=== PATIENT | male | born 1990 | race Hispanic/Latino ===

== ENCOUNTER 2020-03-15 14:53 | Inpatient (IN) | payer OTHER ==
[~2020-03-15] VITALS: Ht 165.1 cm; Wt 104.1 kg
[2020-03-15] MEDS ORDERED: ONDANSETRON ODT 4 MG TAB ONE (15:17)
[2020-03-15] MEDS ORDERED: ACETAMINOPHEN EXTRA STRENGTH 500 MG TABLET ONE (15:42)
[2020-03-15 16:10] LABS: APPEARANCE,URINE Cloudy (CLEAR); BILIRUBIN,URINE Negative (NEGATIVE); COLOR,URINE Dark Yellow (YELLOW); GLUCOSE, URINE (UA) Negative (NEGATIVE); KETONES,URINE Negative (NEGATIVE); LEUKOCYTE ESTERASE ,URINE Negative (NEGATIVE); NITRATE,URINE Negative (NEGATIVE); OCCULT BLOOD,URINE Moderate (NEGATIVE); PROTEIN,URINE 300 mg/dL (NEGATIVE); UROBILINOGEN,URINE 0.2 mg/dL (0.2-1.0)
[2020-03-15 16:24] LABS: BACTERIA,URINE Few /HPF (None Seen); MUCUS,URINE Few LPF (None Seen); SQUAMOUS EPITHELIAL CELL,UR 0-2 /HPF (0-2)
[2020-03-15 17:01] LABS: BASOPHILS % (AUTO) 0.4 % (0.0-5.0); EOSINOPHILS % (AUTO) 0.4 % (0.0-8.0); HEMATOCRIT 42.4 % (42-54); MEAN CORPUSCULAR HEMOGLOBIN 29.2 pg (27.0-33.0); MEAN CORPUSCULAR HGB CONC 35.4 g/dL (32.0-36.0); MEAN CORPUSCULAR VOLUME 82.5 fL (79-99); MONOCYTES % (AUTO) 11.2 % (3.0-13.0); NEUTROPHILS % (AUTO) 77.6 % (40.0-77.0); PLATELET COUNT (AUTO) 181 K/uL (130-400); RED BLOOD CELL COUNT(AUTO) 5.14 MIL/uL (4.50-6.20); WHITE BLOOD COUNT (AUTO) 13.9 K/uL (4.8-10.8)
[2020-03-15 17:16] LABS: ALBUMIN 3.6 g/dL (3.5-5.0); BILIRUBIN,TOTAL 0.4 mg/dL (0.2-1.0); CREATININE 1.4 mg/dL (0.5-1.5); TOTAL PROTEIN, SERUM 8.1 g/dL (6.0-8.3)
[2020-03-15 17:26] LABS: POTASSIUM 2.9 mmol/L (3.5-5.1)
[2020-03-15] MEDS ORDERED: POTASSIUM BICARB/CIT AC 25 MEQ TABLET.EFF ONE ×2 (17:38→18:34)
[2020-03-15] MEDS ORDERED: LEVOFLOXACIN 750 MG/D5W 150 ML 150 ML ONE (18:41)
[2020-03-15] MEDS: SODIUM CHLORIDE 0.9% 1000ML 1,000 ML IV SCH (19:21)
[2020-03-15] MEDS ORDERED: LACTULOSE 20 GM/30 ML UDCUP PO PRN (19:30)
[2020-03-15] MEDS ORDERED: POTASSIUM CHLORIDE 10MEQ/100ML 100 ML IV PRN (19:30)
[2020-03-15] MEDS ORDERED: LIDOCAINE HCL-MPF 1% 2ML VIAL IV PRN (19:30)
[2020-03-15] MEDS: LEVOFLOXACIN 500 MG/D5W 100 ML 100 ML IV SCH (19:30)
[2020-03-15] MEDS: METRONIDAZOLE 500MG/100ML BAG 100 ML IV SCH (19:30)
[2020-03-15] MEDS ORDERED: POTASSIUM CHLORIDE 10% ELIXIR 20 MEQ/15 ML UDCUP PO PRN (19:30)
[2020-03-15 19:40] LABS: INR 0.94 (0.85-1.15); PARTIAL THROMBOPLASTIN TIME 28.7 SEC (26.3-35.5); PROTHROMBIN TIME 10.2 SEC (9.6-11.6)
[2020-03-15 19:42] LABS: TROPONIN I 0.55 ng/mL (0.00-0.06)
[2020-03-15] MEDS ORDERED: LACTATED RINGERS 1000ML 2,000 ML IV ONE (20:03)
[2020-03-15] MEDS: FAMOTIDINE 20MG TAB 20 MG TAB PO SCH (21:00)
[2020-03-15] MEDS ORDERED: FAMOTIDINE/PF 20 MG/2 ML VIAL IV ONE (22:47)
[2020-03-15] MEDS ORDERED: METRONIDAZOLE 500MG/100ML BAG 100 ML ONE (22:47)
[2020-03-15] MEDS ORDERED: ACETAMINOPHEN 325 MG TAB ONE (23:15)
[2020-03-16 03:05] VITALS: BP 127/77
--- NOTE | 2020-03-16 03:05 | NUR ---
ARRIVED TO ROOM 201 VIA STRETCHER. PT AAOx3, DENIES ANY PAIN. PT STATES HE LIVED IN [place] BUT MOVED BACK TO [place] ABOUT 5 WEEKS AGO. HE LIVES WITH HIS BROTHER AND GRANDFATHER. HIS FAMILY INCLUDING AUNTS AND UNCLES HAVE BEEN VISITING AT HIS HOUSE (GRANDFATHERS HOUSE) AND HAVE NOT OBEYED THE QUARANTINE RULES. HE HAS BEEN EXPERIENCING FEVER, DIARRHEA, ABDOMINAL PAIN, AND HEADACHE FOR THE PAST 4-5 DAYS. UP AD RL. BED TO LOWEST LEVEL. CALL LIGHT WITHIN REACH.
[2020-03-16] MEDS: SODIUM CHLORIDE 0.9% 1000ML 1,000 ML IV SCH ×2 (03:29→07:38)
[2020-03-16] MEDS: METRONIDAZOLE 500MG/100ML BAG 100 ML IV SCH ×3 (03:30→20:56)
[2020-03-16 06:26] LABS: BASOPHILS % (AUTO) 0.3 % (0.0-5.0); EOSINOPHILS % (AUTO) 0.2 % (0.0-8.0); HEMATOCRIT 42.6 % (42-54); LYMPHOCYTES % (AUTO) 8.4 % (21.0-51.0); MEAN CORPUSCULAR HEMOGLOBIN 29.3 pg (27.0-33.0); MEAN CORPUSCULAR VOLUME 83.7 fL (79-99); MONOCYTES % (AUTO) 8.8 % (3.0-13.0); NEUTROPHILS % (AUTO) 81.9 % (40.0-77.0); PLATELET COUNT (AUTO) 198 K/uL (130-400); RED BLOOD CELL COUNT(AUTO) 5.09 MIL/uL (4.50-6.20); WHITE BLOOD COUNT (AUTO) 18.6 K/uL (4.8-10.8)
[2020-03-16 06:42] LABS: CREATININE 1.4 mg/dL (0.5-1.5); POTASSIUM 3.2 mmol/L (3.5-5.1)
[2020-03-16] MEDS: ACETAMINOPHEN 325 MG TAB PO PRN ×3 (07:32→23:39)
[2020-03-16] MEDS: FAMOTIDINE 20MG TAB 20 MG TAB PO SCH ×2 (08:35→20:56)
[2020-03-16] MEDS: ENOXAPARIN SODIUM 40 MG/0.4 ML SYRINGE SQ SCH (08:36)
[2020-03-16 09:10] VITALS: BP 136/55
[2020-03-16] MEDS ORDERED: POTASSIUM CHLORIDE 20 MEQ ERTAB PO SCH (10:00)
[2020-03-16 12:48] VITALS: BP 139/58
--- NOTE | 2020-03-16 16:00 | NUR ---
Transferred to 304 in stable condition at this time. Patient denies pain, CP, N/V. Report given to BRANDY Thornton.
--- NOTE | 2020-03-16 16:00 | NUR ---
RECEIVED REPORT FROM NURSE CASILLAS , PER NURSE PATIENT WITH CURRENT 103 TEMP , WILL GIVE TYLENOL BEFORE TRANSFER AND NOTIFY MD . ALSO ON REPORT NURSE STATED MD AWARE OF TROPONIN AND WBC ON MD ROUNDS .
--- NOTE | 2020-03-16 16:02 | NUR ---
ATTEMPTED TO DO IA, CALL WENT TO [employer] [employer], NO OTHER PHONE NUMBER ON CHART. WILL FOLLOW UP Addendum: 03/16/20 at 1603 by LUZ MARIA ELLIS RN CM Amended: Links added.
--- NOTE | 2020-03-16 16:04 | NUR ---
CALL TO ROOM, NO ANSWER
--- NOTE | 2020-03-16 16:20 | NUR ---
PATIENT ARRIVED TO FLOOR . AWAKE AND ALERT. PER TRANSFER NURSE LEFT MESSAGE FOR DR BULLARD ON PATIENTS TEMPS AT 103 AND TYLENOL WAS GIVEN . CURRENT VITALS SIGNS WITH HR 119 . WILL CONT TO MONITOR .
[2020-03-16 17:11] VITALS: BP 132/61
--- NOTE | 2020-03-16 17:30 | NUR ---
CALL BACK FROM NURSE SONJA . PER DR BULLARD HER ORDERED BLOOD CULTURES FOR THE TEMP OF 103.. RECHECK HERE ON MED FLOOR 98.3 AFTER TYLENOL . WILL CONT TO MONITOR
[2020-03-16 20:30] VITALS: BP 112/66
[2020-03-16] MEDS: LEVOFLOXACIN 500 MG/D5W 100 ML 100 ML IV SCH (20:56)
[2020-03-17] VITALS (7 sets, daily range): BP systolic 106–130; BP diastolic 58–74
[2020-03-17] MEDS: MORPHINE SULFATE 2 MG/ML 1ML SYG IV PRN ×2 (00:37→06:48)
[2020-03-17] MEDS: ONDANSETRON HCL 4 MG/2 ML VIAL IV PRN ×2 (00:46→06:48)
[2020-03-17] MEDS: SODIUM CHLORIDE 0.9% 1000ML 1,000 ML IV SCH ×3 (03:29→12:09)
[2020-03-17] MEDS: METRONIDAZOLE 500MG/100ML BAG 100 ML IV SCH ×2 (03:39→12:09)
[2020-03-17 04:24] LABS: BASOPHILS % (AUTO) 0.5 % (0.0-5.0); EOSINOPHILS % (AUTO) 0.5 % (0.0-8.0); HEMATOCRIT 37.1 % (42-54); LYMPHOCYTES % (AUTO) 17.8 % (21.0-51.0); MEAN CORPUSCULAR HEMOGLOBIN 29.2 pg (27.0-33.0); MEAN CORPUSCULAR HGB CONC 34.5 g/dL (32.0-36.0); MEAN CORPUSCULAR VOLUME 84.7 fL (79-99); MONOCYTES % (AUTO) 9.2 % (3.0-13.0); NEUTROPHILS % (AUTO) 71.5 % (40.0-77.0); PLATELET COUNT (AUTO) 202 K/uL (130-400); RED BLOOD CELL COUNT(AUTO) 4.38 MIL/uL (4.50-6.20); RED CELL DISTRIBUTION WIDTH 13.3 % (11.0-15.5); WHITE BLOOD COUNT (AUTO) 13.3 K/uL (4.8-10.8)
[2020-03-17 04:47] LABS: ALBUMIN 2.8 g/dL (3.5-5.0); BILIRUBIN,TOTAL 0.6 mg/dL (0.2-1.0); CREATININE 1.2 mg/dL (0.5-1.5); MAGNESIUM 2.2 mg/dL (1.80-2.40); PHOSPHORUS 2.8 mg/dL (2.5-4.9); POTASSIUM 3.6 mmol/L (3.5-5.1); TOTAL PROTEIN, SERUM 7.1 g/dL (6.0-8.3)
[2020-03-17 05:33] LABS: CRP QUANTITATIVE 221.5 mg/L (0.00-9.0)
[2020-03-17 05:55] LABS: ERYTHROCYTE SEDIMENTATION RATE 42 MM/HR (0-15)
--- NOTE | 2020-03-17 07:30 | NUR ---
NOTE AAOX3. DENIES PAIN OR DISCOMFORT. WAS MEDICATED FOR HEADACHE EARLIER BY ROTARY ENVELOPE MACHINE OPERATOR. NO N/V TOLERATES HIS LIQUID DIET. INSTRUCTED TO CALL WHEN HE HAS BM AND NOT TO FLUSH TOILET TO CONFIRM HE HAS DIARRHEA OR IN CASE HE STARTS TO IMPROVE. VERBALIZED UNDERSTANDING. HE HAD FEVER DURING THE NIGHT AND YESTERDAY HE SPIKED >102. WBC COUNT LOWER TODAY. HE IS N LEVAQUIN AND FLAGYL. COVID WAS R/O. DENIES COUGH OR SOB. BC, URINE CX, AND STOOL CX HAVE BEEN NEGATIVE ALONG WITH FLU A/B AND C-DIFF. WILL SEE WHAT PRIMARY MD ORDERS.
[2020-03-17] MEDS: POTASSIUM CHLORIDE 20 MEQ ERTAB PO PRN (08:26)
[2020-03-17] MEDS: FAMOTIDINE 20MG TAB 20 MG TAB PO SCH ×2 (08:26→20:31)
[2020-03-17] MEDS: ENOXAPARIN SODIUM 40 MG/0.4 ML SYRINGE SQ SCH (08:27)
[2020-03-17] MEDS ORDERED: KETOROLAC TROMETHAMINE 15MG/ML ONE (14:26)
[2020-03-17] MEDS: DOXYCYCLINE 100MG+NS 250ML 250 ML IV SCH (15:36)
--- NOTE | 2020-03-17 16:22 | NUR ---
UNIQUE NOTE/IA MEET WITH PATIENT IN ROOM. PER PATIENT, IS INDEPENDENT WITH ADLS, NO DME IN USE, NO COMMUNITY SERVICES IN USE, AND FEELS SAFE TO RETURN HOME ONCE DISCHARGED. Addendum: 03/17/20 at 1623 by ROSE REYES RN CM Amended: Links added.
[2020-03-17] MEDS ORDERED: PHARMACY COMMUNICATION MISC SCH (17:00)
[2020-03-17] MEDS: CEFTRIAXONE SODIUM 1 GM IVP SCH (18:38)
[2020-03-18] MEDS: SODIUM CHLORIDE 0.9% 1000ML 1,000 ML IV SCH ×3 (00:27→06:23)
[2020-03-18] MEDS: DOXYCYCLINE 100MG+NS 250ML 250 ML IV SCH ×2 (02:36→14:08)
[2020-03-18 04:00] VITALS: BP 119/75
[2020-03-18 05:33] LABS: BASOPHILS % (AUTO) 0.5 % (0.0-5.0); EOSINOPHILS % (AUTO) 2.3 % (0.0-8.0); HEMATOCRIT 43.6 % (42-54); MEAN CORPUSCULAR HEMOGLOBIN 28.6 pg (27.0-33.0); MEAN CORPUSCULAR HGB CONC 34.4 g/dL (32.0-36.0); MONOCYTES % (AUTO) 7.7 % (3.0-13.0); NEUTROPHILS % (AUTO) 65.6 % (40.0-77.0); PLATELET COUNT (AUTO) 192 K/uL (130-400); RED BLOOD CELL COUNT(AUTO) 5.25 MIL/uL (4.50-6.20); RED CELL DISTRIBUTION WIDTH 13.3 % (11.0-15.5); WHITE BLOOD COUNT (AUTO) 9.6 K/uL (4.8-10.8)
[2020-03-18 05:43] LABS: ALBUMIN 2.6 g/dL (3.5-5.0); BILIRUBIN,TOTAL 0.5 mg/dL (0.2-1.0); CREATININE 1.1 mg/dL (0.5-1.5); POTASSIUM 3.3 mmol/L (3.5-5.1); TOTAL PROTEIN, SERUM 6.8 g/dL (6.0-8.3)
[2020-03-18] MEDS: POTASSIUM CHLORIDE 20 MEQ ERTAB PO PRN ×3 (06:14→17:42)
[2020-03-18] MEDS: ACETAMINOPHEN 325 MG TAB PO PRN ×2 (06:23→23:22)
[2020-03-18 08:00] VITALS: BP 127/70
[2020-03-18] MEDS: FAMOTIDINE 20MG TAB 20 MG TAB PO SCH ×2 (10:22→20:07)
[2020-03-18] MEDS: ENOXAPARIN SODIUM 40 MG/0.4 ML SYRINGE SQ SCH (10:24)
[2020-03-18 11:36] VITALS: BP 146/73
--- NOTE | 2020-03-18 11:45 | NUR ---
DR. MATHEW JOHNSON ROUNDING AT THIS TIME. INFORMED MD THAT PATIENTS TEMPERATURE MAX WAS 99.3F LAST NIGHT AND PATIENT HAS BEEN AFEBRILE SO FAR DURING MY SHIFT. MD REPLIED POSSIBLE DISCHARGE TOMORROW IF PATIENT CONTINUES TO DO BETTER OVERNIGHT.
[2020-03-18] MEDS ORDERED: FOLIC ACID 1 MG TABLET PO SCH (13:30)
[2020-03-18] MEDS ORDERED: LORAZEPAM 2 MG/ML 1 ML VIAL IVP PRN (13:30)
[2020-03-18] MEDS ORDERED: CYANOCOBALAMIN (VITAMIN B-12) 1,000 MCG TABLET PO SCH (13:30)
[2020-03-18 16:00] VITALS: BP 100/56
[2020-03-18] MEDS: CEFTRIAXONE SODIUM 1 GM IVP SCH (17:40)
[2020-03-18 19:00] VITALS: BP 125/84
[2020-03-18 23:00] VITALS: BP 131/73
[2020-03-19] MEDS: DOXYCYCLINE 100MG+NS 250ML 250 ML IV SCH ×2 (02:32→13:00)
[2020-03-19 03:00] VITALS: BP 110/70
[2020-03-19 05:52] LABS: BASOPHILS % (AUTO) 0.7 % (0.0-5.0); HEMATOCRIT 36.1 % (42-54); LYMPHOCYTES % (AUTO) 33.6 % (21.0-51.0); MEAN CORPUSCULAR HEMOGLOBIN 28.9 pg (27.0-33.0); MEAN CORPUSCULAR HGB CONC 34.6 g/dL (32.0-36.0); MEAN CORPUSCULAR VOLUME 83.6 fL (79-99); MONOCYTES % (AUTO) 8.8 % (3.0-13.0); NEUTROPHILS % (AUTO) 51.1 % (40.0-77.0); PLATELET COUNT (AUTO) 292 K/uL (130-400); RED BLOOD CELL COUNT(AUTO) 4.32 MIL/uL (4.50-6.20); RED CELL DISTRIBUTION WIDTH 13.2 % (11.0-15.5); WHITE BLOOD COUNT (AUTO) 10.6 K/uL (4.8-10.8)
[2020-03-19 06:12] LABS: ALBUMIN 2.7 g/dL (3.5-5.0); BILIRUBIN,TOTAL 0.4 mg/dL (0.2-1.0); CREATININE 1.1 mg/dL (0.5-1.5); POTASSIUM 3.6 mmol/L (3.5-5.1); TOTAL PROTEIN, SERUM 6.9 g/dL (6.0-8.3)
[2020-03-19 08:11] VITALS: BP 115/74
[2020-03-19] MEDS ORDERED: FOLIC ACID 1 MG TABLET PO SCH (09:00)
[2020-03-19] MEDS ORDERED: CYANOCOBALAMIN (VITAMIN B-12) 1,000 MCG TABLET PO SCH (09:00)
[2020-03-19] MEDS: FAMOTIDINE 20MG TAB 20 MG TAB PO SCH (09:22)
[2020-03-19] MEDS: POTASSIUM CHLORIDE 20 MEQ ERTAB PO PRN (09:23)
[2020-03-19] MEDS: ENOXAPARIN SODIUM 40 MG/0.4 ML SYRINGE SQ SCH (09:25)
[2020-03-19 12:00] VITALS: BP 115/74
[2020-03-19 16:43] VITALS: BP 128/80
[2020-03-20 15:10] LABS: ROCKY MT SPOTTED FEVER IGG <1:64 (Neg:<1:64); TYPHUS FEVER AB IGG <1:64 (Neg:<1:64)
== END 2020-03-19 16:55 | disposition home or self-care (01) | DRG 872 ==
LOC: EDH 14:53 → EDHIP 14:54 → OBSVTOIN 14:54 → 2AH 03-16 03:09 → 3AH 03-16 16:05
PROVIDERS: ADMIT Internal Medicine; ATTEND Internal Medicine
DX: A41.9 Sepsis, unspecified organism (principal); A09 Infectious gastroenteritis and colitis, unspecified; A79.9 Rickettsiosis, unspecified; E66.9 Obesity, unspecified; B34.9 Viral infection, unspecified; E86.1 Hypovolemia; E87.6 Hypokalemia; R53.81 Other malaise; R74.8 Abnormal levels of other serum enzymes; F10.10 Alcohol abuse, uncomplicated; Z20.828 Contact with and (suspected) exposure to other viral communicable diseases; Z68.38 Body mass index [BMI] 38.0-38.9, adult; Z88.0 Allergy status to penicillin
CPT/HCPCS: 36415; 71045; 80048; 80053; 81001; 82550; 83605; 83630; 83735; 83874; 84100; 84145; 84484; 85025; 85610; 85651; 85730; 86140; 86757; 87040; 87046; 87088; 87324; 87804; 93005; G0378; J0696; J1650; J1885; J1956; J2405; J3490; J7030; J7120